=== PATIENT | male | born 1960 | race Caucasian/White ===

== ENCOUNTER 2016-12-24 07:36 | Outpatient (CLI) | payer OTHER ==
[2016-12-24] MEDS ORDERED: Iopamidol 370 76% 100 ML VIAL ONE (09:00)
--- NOTE | 2016-12-24 10:53 | CT ---
CT ABDOMEN AND PELVIS WITH AND WITHOUT CONTRAST: Technique: Multiple axial tomograms were obtained through the abdomen and pelvis pre and post IV con trast. Post contrast images obtained in the portal venous and delayed venous phase following urograp hic protocol. History: Gross hematuria. FINDINGS: Review of the urinary tract on the noncontrast imaging shows no evidence of urinary tract calculus. There is no evidence of hydronephrosis. The ureters are normal caliber. The bladder shows a thickened wall. There is soft tissue mass arising from the floor of the bladder measuring up to 4 cm diameter. There are two bladder calculi seen. One measures 7-8 mm and the other measures 5-6 mm diameter. The prostate is mildly enlarged. On the post contrast images the kidneys show symmetric enhancement. There are tiny cystic lesions in both kidneys subcentimeter and too small to adequately characterize. No definite enhancing mass. On the delayed sequence there is contrast secretion into the collecting structures. Collecting structu res appear unremarkable. Lung bases are clear. The liver, spleen, pancreas, and adrenal glands appear unremarkable. Bowel loops unremarkable. Appen thuy is normal. Aorta is normal caliber. No adenopathy identified. Osseous structures are unremarkabl e. IMPRESSION: 1. There is abnormal bladder wall thickening. There are two bladder calculi seen, one measuring appr oximately 7-8 mm and the other measuring 5 mm. There is a soft tissue mass arising from the floor of the bladder in the region of the bladder neck measuring up to 4 cm diameter worrisome for a bladder neoplasm. 2. Mild prostatic hypertrophy. POS: [facility]
== END 2016-12-24 07:37 | disposition home or self-care (01) ==
LOC: SCSCT 07:36
PROVIDERS: ATTEND Urology
DX: N40.1 Benign prostatic hyperplasia with lower urinary tract symptoms (principal); R31.0 Gross hematuria; N21.0 Calculus in bladder
CPT/HCPCS: 36415; 74178; G0103

== ENCOUNTER 2017-03-19 14:23 | Outpatient (CLI) | payer OTHER ==
[2017-03-19 15:33] LABS: Hemoglobin 14.7 g/dL (14.0-18.0); Mean Corpuscular HGB CONC 32.5 g/dL (32.0-36.0); Mean Corpuscular Hemoglobin 29.7 pg (27.0-31.0); Mean Corpuscular Volume 91.3 fl (80.0-94.0); Mean Platelet Volume 7.3 fL (7.4-10.4); Platelet Count 282 thou/uL (130-400); RBC Distribution Width 11.8 % (11.5-14.5); Red Blood Cell (RBC) Count 4.96 mill/uL (4.70-6.10); White Blood Cell (WBC) Count 6.2 thou/uL (4.8-10.8)
[2017-03-19 15:56] LABS: Anion Gap 12 mmol/L (10-20); BUN (Urea Nitrogen) 18 mg/dL (8.4-25.7); Calc. Creatinine Clearance 0 mL/min (70-130); Calcium 10.1 mg/dL (7.8-10.44); Carbon Dioxide 27 mmol/L (22-29); Chloride 104 mmol/L (98-107); Estimated GFR-MDRD 59; Glucose 91 mg/dL (70-105); Potassium 4.1 mmol/L (3.5-5.1); Sodium 139 mmol/L (136-145)
== END 2017-03-19 14:24 | disposition home or self-care (01) ==
LOC: LABBT 14:23
PROVIDERS: ATTEND Urology
DX: Z01.818 Encounter for other preprocedural examination (principal); N21.0 Calculus in bladder
CPT/HCPCS: 80048; 85027

== ENCOUNTER 2017-03-24 06:28 | Day surgery (SDC) | payer OTHER ==
[2017-03-19 14:58] VITALS: BMI 24.5
[2017-03-24] MEDS ORDERED: Levofloxacin 500 mg/D5W 100 ml Premix Bag ONE (06:59)
[2017-03-24] MEDS ORDERED: Fentanyl 100 MCG/2 ML VIAL ONE (07:07)
[2017-03-24] MEDS ORDERED: Midazolam HCl 2 mg/2 ml Vial ONE (07:07)
[2017-03-24] MEDS ORDERED: B & O ONE (12:32)
[2017-03-24] MEDS ORDERED: Furosemide 20 MG/2 ML VIAL ONE (12:50)
[2017-03-24] MEDS ORDERED: Morphine 4 MG/ML VIAL ONE (14:41)
--- NOTE | 2017-03-24 23:29 | OP ---
DATE OF PROCEDURE: 03/24/2017 PREOPERATIVE DIAGNOSIS: Benign prostatic hypertrophy with bladder stones. POSTOPERATIVE DIAGNOSIS: Benign prostatic hypertrophy with bladder stones. PROCEDURE PERFORMED: Cystolitholapaxy. SURGEON: Dr. Villanueva. ANESTHESIA: General with LMA. FINDINGS: Adequate fragmentation of 2 bladder stones with all of the fragments evacuated. A total of 2250 joules used. COMPLICATIONS: No complications. SPECIMEN: Bladder Stone. DRAINS: Drain remaining was a 20-Sudanese 2-way. ESTIMATED BLOOD LOSS: Minimal. INDICATIONS: A 56-year-old male who presented with gross hematuria and the workup revealed bladder stones as well as significant BPH. Based on the size of his gland and the significant hematuria associated with the stones, I opted to do cystolitholapaxy with delayed GreenLight. He presents for the first procedure. TECHNIQUE: The patient was brought to the room by Anesthesia and kept in supine position. After receiving general anesthetic, his legs were placed in lithotomy position and his perineum was prepped and draped in sterile fashion. Using a 26 resectoscope, urethra was traversed and the bladder inspected. Hematuria was noted before doing any procedure, both around the cystoscope and in the bladder itself. The stones were identified and then fragmented into pieces that were small enough to extract. At one point, they had situated themselves in a small diverticulum, but I ensured to irrigate this out fully and carefully inspected the floor of the bladder, which meant removing the large obstructing middle lobe laterally and medially in order to determine all fragments were removed. Once I was satisfied of this, I checked the diverticulum again and nothing was there. So at this point, the resectoscope was removed and a 20 Sudanese Martinez was placed to gravity. There was no significant hematuria around the catheter itself and I expect there to be significant hematuria over the next day or so. The patient tolerated the procedure well and was then awakened and transferred to the PACU in stable condition. JARRET
== END 2017-03-24 16:20 | disposition home or self-care (01) ==
LOC: SDC 06:28
PROVIDERS: ATTEND Urology
PROC: 0TCB8ZZ Extirpation of Matter from Bladder, Via Natural or Artificial Opening Endoscopic (ICD-10-PCS; principal; 2017-03-24)
DX: N21.0 Calculus in bladder (principal); N40.1 Benign prostatic hyperplasia with lower urinary tract symptoms; R35.0 Frequency of micturition; R35.1 Nocturia; R33.8 Other retention of urine; R39.15 Urgency of urination; E78.5 Hyperlipidemia, unspecified; Z79.899 Other long term (current) drug therapy; Z90.89 Acquired absence of other organs; Z98.890 Other specified postprocedural states
CPT/HCPCS: 82365; 88300; 96374; J0131; J1940; J1956; J2250; J2270; J3010

== ENCOUNTER 2017-04-27 09:26 | Outpatient (CLI) | payer OTHER ==
[2017-04-27 10:31] LABS: Hemoglobin 14.5 g/dL (14.0-18.0); Mean Corpuscular HGB CONC 32.7 g/dL (32.0-36.0); Mean Corpuscular Hemoglobin 29.7 pg (27.0-31.0); Mean Corpuscular Volume 90.8 fl (80.0-94.0); Mean Platelet Volume 7.4 fL (7.4-10.4); Platelet Count 254 thou/uL (130-400); RBC Distribution Width 11.9 % (11.5-14.5); Red Blood Cell (RBC) Count 4.88 mill/uL (4.70-6.10); White Blood Cell (WBC) Count 5.4 thou/uL (4.8-10.8)
[2017-04-27 10:47] LABS: Anion Gap 10 mmol/L (10-20); BUN (Urea Nitrogen) 21 mg/dL (8.4-25.7); Calc. Creatinine Clearance 0 mL/min (70-130); Calcium 9.7 mg/dL (7.8-10.44); Carbon Dioxide 26 mmol/L (22-29); Chloride 107 mmol/L (98-107); Estimated GFR-MDRD 59; Glucose 92 mg/dL (70-105); Potassium 4.4 mmol/L (3.5-5.1); Sodium 139 mmol/L (136-145)
== END 2017-04-27 09:27 | disposition home or self-care (01) ==
LOC: LABBT 09:26
PROVIDERS: ATTEND Urology
DX: Z01.812 Encounter for preprocedural laboratory examination (principal); N40.0 Benign prostatic hyperplasia without lower urinary tract symptoms
CPT/HCPCS: 80048; 81001; 85027; 87086

== ENCOUNTER 2017-05-05 05:57 | Day surgery (SDC) | payer OTHER ==
[2017-04-27 09:58] VITALS: BMI 24.6
[2017-05-05] MEDS ORDERED: Levofloxacin 500 mg/D5W 100 ml Premix Bag ONE (06:40)
[2017-05-05] MEDS ORDERED: Dexamethasone 10 MG/ML VIAL SLOW IVP SCH (07:00)
[2017-05-05] MEDS ORDERED: Furosemide 20 MG/2 ML VIAL ONE (07:07)
[2017-05-05] MEDS ORDERED: B & O ONE (07:07)
[2017-05-05] MEDS ORDERED: Fentanyl 100 MCG/2 ML VIAL ONE (07:19)
[2017-05-05] MEDS ORDERED: Midazolam HCl 2 mg/2 ml Vial ONE (07:19)
--- NOTE | 2017-05-05 10:33 | OP ---
DATE OF SERVICE: 05/05/2017 PREOPERATIVE DIAGNOSES: Benign prostatic hypertrophy, prior bladder stones. POSTOPERATIVE DIAGNOSES: Benign prostatic hypertrophy, prior bladder stones. PROCEDURE: GreenLight laser vaporization of the prostate with enucleation of the middle lobe. SURGEON: Dr. Maria Antonia Villanueva ANESTHESIA: General with laryngeal mask airway. FINDINGS: Adequate resection of a large intravesical median lobe using 290,526 joules. A good strea m noted at the end of the case. COMPLICATIONS: No complications. SPECIMEN: Specimen was prostate as well as old clot from the prior procedure sent together. DRAIN REMAINING: A 20-Slovenian 2-way. ESTIMATED BLOOD LOSS: Blood loss was minimal. INDICATIONS: The patient is a 56-year-old male who is followed in the office and noted to have bladd er stones with significant BPH. He had already undergone cystolitholapaxy 6 weeks prior, and present s for definitive prostate therapy. TECHNIQUE: The patient was brought into the room by Anesthesia, placed on the table in supine positi on. After obtaining general anesthetic his legs were placed in lithotomy position and his perineum w as prepped and draped in sterile fashion. Using a 22.5 Slovenian scope and 30 degree lens it was artemio sed and the bladder inspected. Ureteral orifices were difficult to find given the mobile intravesica l middle lobe, but they were noted and preserved throughout the case. There was also a diverticulum just lateral to the right UO had accumulated debris that was ensured to be cleaned by the end of the case. Resection was carefully taken down over the middle lobe using a power of 80 for significant po rtion of the beginning of the case given that this portion of resection was inside the bladder. When the middle lobe was finally taken down to the level of the bladder floor and a power of 180 was used . The lateral lobes were also taken down without the need for enucleation and after approximately 25 0,000 joules adequate resection of the middle lobe and some of the lateral lobes had been performed a nd the chips were evacuated out. A grasper was used to get the chips out of the diverticulum. Then, attention was turned back to the lateral lobes with the bladder left decompressed and there was furt her resection to be had on this area. Once this was completely opened up the scope was removed and a good stream was noted. The scope was put back in, the bladder decompressed. Hemostasis insured. A power of 80 was used to paint a portion of the prostatic bed for hemostasis. A total of 290,526 wil les were used and when the scope was removed, a final time, a 20 Slovenian catheter was placed to gravit y. The patient tolerated procedure well and was then awakened and transferred to PACU in stable cond ition.
== END 2017-05-05 13:00 | disposition home or self-care (01) ==
LOC: SDC 05:57
PROVIDERS: ATTEND Urology
PROC: 0V507ZZ Destruction of Prostate, Via Natural or Artificial Opening (ICD-10-PCS; principal; 2017-05-05)
DX: N40.1 Benign prostatic hyperplasia with lower urinary tract symptoms (principal); R35.0 Frequency of micturition; R31.0 Gross hematuria; R31.29 Other microscopic hematuria; R35.1 Nocturia; R39.12 Poor urinary stream; R33.9 Retention of urine, unspecified; E78.5 Hyperlipidemia, unspecified; Z79.899 Other long term (current) drug therapy; Z98.890 Other specified postprocedural states; Z87.442 Personal history of urinary calculi
CPT/HCPCS: 88305; J1100; J1940; J1956; J2250; J3010